=== PATIENT | female | born 1935 | race Caucasian/White ===

== ENCOUNTER 2020-09-21 08:22 | Day surgery (SDC) | payer MEDICARE, OTHER ==
[2020-09-18 16:28] VITALS: BMI 23.1
[~2020-09-21 08:22] MED LIST: LACTATED RINGERS 1,000 ML IV SCH
[2020-09-21 09:15] VITALS: TEMP 98.6
[2020-09-21] MEDS ORDERED: LIDOCAINE 1% (10MG/ML) FOR IV START INTRADERMA ONE (09:20)
[2020-09-21] MEDS ORDERED: PROPOFOL 10 MG/ML 20 ML VIAL IV ONE (09:46)
--- NOTE | 2020-09-21 10:07 | P.PCN ---
Date of Procedure: 09/21/20 Description of Procedure: BRIEF HISTORY: Patient is a 85-year-old female presenting for outpatient esophagogastroduodenoscopy for evaluation of GERD. The patient was seen in the clinic reporting symptoms of a very sour taste in her mouth for 2 months worsen when she ate foods. She reported associated weight loss and intermittent pressure discomfort in the epigastric region. Currently on omeprazole and Pepcid therapy. PROCEDURE PERFORMED: Esophagogastroduodenoscopy with biopsy. PREOPERATIVE DIAGNOSIS: GERD, sour taste in her mouth, epigastric abdominal pain. ESTIMATED BLOOD LOSS: Minimal. IV sedation per anesthesia. PROCEDURE: After informed consent was obtained, the patient was brought into the endoscopy unit. IV sedation was administered by Anesthesia under continuous monitoring. Initially the Olympus GIF-190 video endoscope was inserted into the mouth. Esop hagus intubated without any difficulty. It was gradually advanced into the stomach and duodenum and carefully examined. The bulb and the second part of the duodenum appeared maria isabel, with biopsies taken l. The scope at this time was withdrawn to the stomach, adequately insufflated with air, and upon careful examination, mucosa of the antrum, body, cardia and the fundus appeared normal, except for some mild scattered erythema in the antrum and body suggestive of mild gastritis with biopsies taken. The scope was then withdrawn into the esophagus. The GE junction was located at 39 cm from the incisors, with a small 1 cm hiatal hernia noted. The esophagus appeared normal, with the lower esophagus biopsy. There were no erosions or ulcerations seen and the patient tolerated the procedure well. IMPRESSION: 1. Mild gastritis. 2. Small hiatal hernia. 3. Biopsies of the duodenum, antrum body and lower esophagus. RECOMMENDATIONS: The findings of this examination were discussed with the patient and her family. Okay to resume diet. Okay to resume medications. Continue current acid suppression regimen. May benefit from further evaluation with dentist or other specialties is no gross abnormalities were found on EGD to explain symptoms of foul taste in her mouth. Await pathology from biopsies. Follow up with GI clinic as scheduled.
[2020-09-21 10:35] VITALS: BP 155/65; PULSE 63; RESP 16
== END 2020-09-21 10:42 | disposition home or self-care (01) ==
LOC: ORWHC2ENDO 08:22
PROVIDERS: ATTEND Internal Medicine
DX: K29.50 Unspecified chronic gastritis without bleeding (principal); K21.00 Gastro-esophageal reflux disease with esophagitis, without bleeding; K44.9 Diaphragmatic hernia without obstruction or gangrene; R63.4 Abnormal weight loss; J45.909 Unspecified asthma, uncomplicated; I49.9 Cardiac arrhythmia, unspecified; E07.9 Disorder of thyroid, unspecified; Z86.73 Personal history of transient ischemic attack (TIA), and cerebral infarction without residual deficits; H40.9 Unspecified glaucoma; Z79.1 Long term (current) use of non-steroidal anti-inflammatories (NSAID); Z79.899 Other long term (current) drug therapy; Z88.5 Allergy status to narcotic agent; Z88.0 Allergy status to penicillin; Z88.8 Allergy status to other drugs, medicaments and biological substances
CPT/HCPCS: 88305; 43239; J2704

== ENCOUNTER 2024-03-01 15:28 | Inpatient (IN) | payer MEDICARE, OTHER ==
[2024-03-01 16:24] LABS: Basophils % (A) 0 %; Eosinophils # (A) 0.1 k/uL (0-0.7); Eosinophils % (A) 2 %; HCT 41.1 % (34.0-46.0); HGB 13.2 gm/dL (11.4-16.0); Lymphocytes # (A) 1.7 k/uL (1.0-4.8); Lymphocytes % (A) 30 %; MCH 31.3 pg (25.0-35.0); MCHC 32.2 g/dL (31.0-37.0); MCV 97.1 fL (80.0-100.0); Mean Platelet Volume 7.4; Monocytes # (A) 0.4 k/uL (0-1.0); Monocytes % (A) 8 %; Neutrophils # (A) 3.3 k/uL (1.3-7.7); Neutrophils % (A) 58 %; Platelet Count 162 k/uL (150-450); RBC 4.23 m/uL (3.80-5.40); RDW 12.4 % (11.5-15.5); WBC 5.6 k/uL (3.8-10.6)
[2024-03-01 16:27] LABS: ALT 88 U/L (4-34); AST 61 U/L (14-36); African American GFR (CKD) 66 (>60 ml/min/1.73 sqM); Alkaline Phosphatase 74 U/L (38-126); Anion Gap 4 mmol/L; Blood Urea Nitrogen 19 mg/dL (7-17); Calcium 9.2 mg/dL (8.4-10.2); Carbon Dioxide 27 mmol/L (22-30); Chloride 109 mmol/L (98-107); Glucose 128 mg/dL (74-99); Magnesium 1.8 mg/dL (1.6-2.3); Non-African American GFR(CKD) 57 (>60 ml/min/1.73 sqM); Potassium 4.3 mmol/L (3.5-5.1); Sodium 140 mmol/L (137-145); Total Bilirubin 1.1 mg/dL (0.2-1.3); Total Protein 6.8 g/dL (6.3-8.2)
[2024-03-01 16:29] LABS: INR 1.2 (<1.2); Partial Thromboplastin Time 23.9 sec (22.0-30.0); Prothrombin Time 12.9 sec (10.0-12.5)
[2024-03-01 16:36] LABS: NT-Pro-B-Type Natriuretic Pept 4700 pg/mL
--- NOTE | 2024-03-01 17:00 | XR ---
EXAMINATION TYPE: XR chest 2V DATE OF EXAM: 03/01/2024 4:51 PM COMPARISON: None CLINICAL INDICATION: Female, 88 years old with history of difficulty breathing; [facility] TECHNIQUE: XR chest 2V Frontal and lateral views of the chest. FINDINGS: Lungs/Pleura: No evidence of focal consolidation or pneumothorax. Blunting of the costophrenic angles is present. Pulmonary vascularity: Pulmonary vascular congestion. Heart/mediastinum: Cardiomediastinal silhouette is enlarged and stable. Musculoskeletal: No acute osseous pathology. Other findings: None IMPRESSION: Cardiomegaly, pulmonary vascular congestion and bilateral pleural effusions. Correlate with BNP for c ongestive heart failure. [facility], , 03/01/2024 4:57 PM
--- NOTE | 2024-03-01 19:14 | ED ---
SOB HPI - General Chief Complaint: Shortness of Breath Stated Complaint: fluid on lungs Time Seen by Provider: 03/01/24 18:31 Source: patient Mode of arrival: ambulatory Limitations: no limitations - History of Present Illness Initial Comments: This patient is an 88-year-old woman who presents with complaints that she is having shortness of breath and orthopnea. The symptoms have been going on for approximately 2 weeks. She also is complaining of bilateral ankle edema. The patient notes that she can no longer sleep lying flat. She states if she tries to sleep lying flat she wakes up. As result she has to sleep propped up and she only sleeps about 4 hours per night now. Patient denies chest pain. No change in urination or bowel movements. MD Complaint: shortness of breath Onset/Timin -: week(s) Severity scale (1-10): 0 Consistency: constant Improves With: upright position Worsens With: lying flat, exertion Treatments Prior to Arrival: none - Related Data Home Oxygen Therapy: No Home Medications Medication Instructions Recorded Confirmed Cholecalciferol [Vitamin D3 (25 25 mcg PO HS 09/18/20 03/01/24 Mcg = 1000 Iu)] Dorzolamide/Timolol/Pf 1 drop BOTH EYES BID 09/18/20 03/01/24 [Dorzolamide 2%-Timolol 0.5%] Latanoprost/Pf [Latanoprost 0.005% 1 drop BOTH EYES HS 09/18/20 03/01/24 Eye Drop] methIMAzole [Tapazole] 2.5 mg PO DAILY 09/18/20 03/01/24 Docusate [Colace] 100 mg PO BID PRN 03/01/24 03/01/24 polyethylene glycoL 3350 [Miralax] 17 gm PO DAILY 03/01/24 03/01/24 Previous Rx's Medication Instructions Recorded Apixaban [Eliquis] 2.5 mg PO BID 30 Days #60 tab 03/05/24 Atorvastatin [Lipitor] 40 mg PO HS 30 Days #30 tab 03/05/24 Bumetanide [BUMEX] 1 mg PO DAILY 30 Days #30 tab 03/05/24 Losartan [Cozaar] 12.5 mg PO DAILY 30 Days #15 tab 03/05/24 Metoprolol Succinate (ER) [Toprol 25 mg PO DAILY 30 Days #30 tab 03/05/24 XL] Pantoprazole [Protonix] 40 mg PO AC-BRKFST 30 Days #30 tab 03/05/24 Allergies Allergy/AdvReac Type Severity Reaction Status Date / Time codeine Allergy Rash/Hives Verified 03/01/24 20:09 demeclocycline Allergy Rash/Hives Verified 03/01/24 20:09 [From Declomycin] Penicillins Allergy Rash/Hives Verified 03/01/24 20:09 secobarbital [From Seconal] Allergy Rash/Hives Verified 03/01/24 20:09 morphine AdvReac Nausea & Verified 03/01/24 20:09 Vomiting Review of Systems ROS Statement: Those systems with pertinent positive or pertinent negative responses have been documented in the HPI. ROS Other: All systems not noted in ROS Statement are negative. Constitutional: Denies: fever, chills Respiratory: Reports: dyspnea. Denies: cough, wheezes Cardiovascular: Reports: dyspnea on exertion, orthopnea, edema. Denies: chest pain, palpitations, syncope Gastrointestinal: Reports: abdominal pain, diarrhea. Denies: nausea, vomiting Genitourinary: Denies: dysuria, hematuria Musculoskeletal: Denies: back pain Skin: Denies: rash Neurological: Denies: headache, weakness Past Medical History Past Medical History: Asthma, CVA/TIA, Eye Disorder, GERD/Reflux, Pneumonia, Thyroid Disorder Additional Past Medical History / Comment(s): glaucoma, sinus drainage and allergies. occas. irregular heart beat, weakness, change in taste, "tongue coated" nausea with wt loss 15 pounds, osteoporosis, recent falls has scabs on knees and elbows. goiter History of Any Multi-Drug Resistant Organisms: None Reported Past Surgical History: Cholecystectomy, Hysterectomy Additional Past Surgical History / Comment(s): josé miguel cataract with lens implants,. thyroid surgery x2. rectocele,cystocele repair Past Anesthesia/Blood Transfusion Reactions: Previous Problems w/ Anesthesia Additional Past Anesthesia/Blood Transfusion Reaction / Comment(s): one episode of stopped breathing with thyroid surgery at age 24 Past Psychological History: Anxiety, Depression Smoking Status: Former smoker Past Alcohol Use History: None Reported Past Drug Use History: None Reported General Exam Limitations: no limitations General appearance: alert, in no apparent distress Head exam: Present: atraumatic, normocephalic Eye exam: Present: normal appearance. Absent: scleral icterus, conjunctival injection Neck exam: Present: normal inspection Respiratory exam: Present: rales (There are crackles at the bases bilaterally). Absent: respiratory distress, wheezes, rhonchi, stridor, accessory muscle use Cardiovascular Exam: Present: regular rate, irregular rhythm, normal heart sounds. Absent: systolic murmur, diastolic murmur, rubs, gallop GI/Abdominal exam: Present: soft. Absent: distended, tenderness, guarding, rebound, rigid, mass Extremities exam: Present: normal inspection, normal capillary refill, pedal edema. Absent: calf tenderness Back exam: Present: normal inspection. Absent: CVA tenderness (R), CVA tenderness (L) Neurological exam: Present: alert Skin exam: Present: warm, dry, intact, normal color. Absent: rash Course Vital Signs 03/01/24 03/01/24 03/01/24 15:34 18:46 20:30 Temperature 97.4 F L Pulse Rate 76 79 80 Respiratory 18 16 18 Rate Blood Pressure 178/98 170/83 157/81 O2 Sat by Pulse 98 99 96 Oximetry 03/01/24 03/02/24 03/02/24 22:00 00:00 02:00 Temperature Pulse Rate 93 58 L 68 Respiratory 18 18 18 Rate Blood Pressure 117/87 142/64 141/66 O2 Sat by Pulse 100 97 95 Oximetry 03/02/24 03/02/24 03/02/24 04:00 06:00 07:36 Temperature Pulse Rate 63 61 66 Respiratory 18 18 16 Rate Blood Pressure 160/74 164/79 143/72 O2 Sat by Pulse 96 96 94 L Oximetry 03/02/24 03/02/24 03/02/24 10:29 11:27 14:36 Temperature 98.2 F Pulse Rate 72 76 70 Respiratory 18 18 16 Rate Blood Pressure 145/67 161/98 151/72 O2 Sat by Pulse 98 97 97 Oximetry 03/02/24 03/02/24 03/02/24 16:21 17:00 18:00 Temperature Pulse Rate 70 74 72 Respiratory 18 18 18 Rate Blood Pressure 148/66 163/75 O2 Sat by Pulse 94 L 94 L 93 L Oximetry 03/02/24 20:04 Temperature 98.1 F Pulse Rate 78 Respiratory 18 Rate Blood Pressure 142/77 O2 Sat by Pulse 93 L Oximetry Medical Decision Making - Medical Decision Making The patient had chest x-ray that shows vascular congestion consistent with degree of congestive heart failure. The patient also does have some tracheal deviation due to what appears to be large goiter. Was pt. sent in by a medical professional or institution ([facility], [employer], urgent care, hospital, or fdc...) When possible be specific @ -[No] Did you speak to anyone other than the patient for history (EMS, parent, family, police, friend...)? What history was obtained from this source @ -[No] Did you review nursing and triage notes (agree or disagree)? Why? @ -[I reviewed and agree with nursing and triage notes] Were old charts reviewed (outside hosp., previous admission, EMS record, old EKG, old radiological studies, urgent care reports/EKG's, fdc records)? Report findings @ -[No old charts were reviewed] Differential Diagnosis (chest pain, altered mental status, abdominal pain women, abdominal pain men, vaginal bleeding, weakness, fever, dyspnea, syncope, headac he, dizziness, GI bleed, back pain, seizure, CVA, palpatations, mental health, musculoskeletal)? @ -[not applicable] EKG interpreted by me (3pts min.). @ -[Interpreted as above] X-rays interpreted by me (1pt min.). @ -[I interpreted as above CT interpreted by me (1pt min.). @ -[None done] U/S interpreted by me (1pt. min.). @ -[None done] What testing was considered but not performed or refused? (CT, X-rays, U/S, labs)? Why? @ -[None] What meds were considered but not given or refused? Why? @ -[None] Did you discuss the management of the patient with other professionals (professionals i.e. [facility]to, [employer], lab, RT, psych nurse, high school social studies teacher, shed hand, teacher, benefits officer, disability case manager)? Give summary @ -[Discussed with the admitting physician and treatment recommendations are incorporated Was smoking cessation discussed for >3mins.? @ -[No] Was critical care preformed (if so, how long)? @ -[No] Were there social determinants of health that impacted care today? How? (Homelessness, low income, unemployed, alcoholism, drug addiction, transportation, low edu. Level, literacy, decrease access to med. care, group home, rehab)? @ -[No] Was there de-escalation of care discussed even if they declined (Discuss DNR or withdrawal of care, Hospice)? DNR status @ -[No] What co-morbidities impacted this encounter? (DM, HTN, Smoking, COPD, CAD, Cancer, CVA, ARF, Chemo, Hep., AIDS, mental health diagnosis, sleep apnea, morbid obesity)? @ -[Hypertension, goiter Was patient admitted / discharged? Hospital course, mention meds given and route, prescriptions, significant lab abnormalities, going to OR and other pertinent info. @ -[Patient is an 88-year-old woman presenting with history consistent with progressive congestive heart failure. Physical exam consistent with this. The patient with no previous diagnosis of CHF. She will be admitted to have echocardiogram and further cardiology evaluation as well as diuresis. Undiagnosed new problem with uncertain prognosis? @ -[No] Drug Therapy requiring intensive monitoring for toxicity (Heparin, Nitro, Insulin, Cardizem)? @ -[No] Were any procedures done? @ -[No] Diagnosis/symptom? @ -[Acute congestive heart failure Acute, or Chronic, or Acute on Chronic? @ -[Acute Uncomplicated (without systemic symptoms) or Complicated (systemic symptoms)? @ -[Uncomplicated Side effects of treatment? @ -[No] Exacerbation, Progression, or Severe Exacerbation? @ -[No] Poses a threat to life or bodily function? How? (Chest pain, USA, DC, pneumonia, PE, COPD, DKA, ARF, appy, cholecystitis, CVA, Diverticulitis, Homicidal, Suicidal, threat to staff... and all critical care pts) @ -[Yes, requires cardiology evaluation - Lab Data Result diagrams: 03/03/24 07:45 03/03/24 07:45 Lab Results 03/01/24 03/01/24 03/01/24 Range/Units 15:49 15:49 15:49 WBC 5.6 (3.8-10.6) k/uL RBC 4.23 (3.80-5.40) m/uL Hgb 13.2 (11.4-16.0) gm/dL Hct 41.1 (34.0-46.0) % MCV 97.1 (80.0-100.0) fL MCH 31.3 (25.0-35.0) pg MCHC 32.2 (31.0-37.0) g/dL RDW 12.4 (11.5-15.5) % Plt Count 162 (150-450) k/uL MPV 7.4 Neutrophils % 58 % Lymphocytes % 30 % Monocytes % 8 % Eosinophils % 2 % Basophils % 0 % Neutrophils # 3.3 (1.3-7.7) k/uL Lymphocytes # 1.7 (1.0-4.8) k/uL Monocytes # 0.4 (0-1.0) k/uL Eosinophils # 0.1 (0-0.7) k/uL Basophils # 0.0 (0-0.2) k/uL PT 12.9 H (10.0-12.5) sec INR 1.2 H (<1.2) APTT 23.9 (22.0-30.0) sec Sodium 140 (137-145) mmol/L Potassium 4.3 (3.5-5.1) mmol/L Chloride 109 H (98-107) mmol/L Carbon Dioxide 27 (22-30) mmol/L Anion Gap 4 mmol/L BUN 19 H (7-17) mg/dL Creatinine 0.90 (0.52-1.04) mg/dL Est GFR (CKD-EPI)AfAm 66 (>60 ml/min/1.73 sqM) Est GFR (CKD-EPI)NonAf 57 (>60 ml/min/1.73 sqM) Glucose 128 H (74-99) mg/dL Calcium 9.2 (8.4-10.2) mg/dL Magnesium 1.8 (1.6-2.3) mg/dL Total Bilirubin 1.1 (0.2-1.3) mg/dL AST 61 H (14-36) U/L ALT 88 H (4-34) U/L Alkaline Phosphatase 74 (38-126) U/L Troponin I (0.000-0.034) ng/mL NT-Pro-B Natriuret Pep 4700 pg/mL Total Protein 6.8 (6.3-8.2) g/dL Albumin 4.0 (3.5-5.0) g/dL TSH (0.465-4.680) mIU/L Urine Color Urine Appearance (Clear) Urine pH (5.0-8.0) Ur Specific Egan (1.001-1.035) Urine Protein (Negative) Urine Glucose (UA) (Negative) Urine Ketones (Negative) Urine Blood (Negative) Urine Nitrite (Negative) Urine Bilirubin (Negative) Urine Urobilinogen (<2.0) mg/dL Ur Leukocyte Esterase (Negative) Urine RBC (0-5) /hpf Urine WBC (0-5) /hpf Ur Squamous Epith Cells (0-4) /hpf Urine Bacteria (None) /hpf Urine Mucus (None) /hpf 03/01/24 03/01/24 03/01/24 Range/Units 15:49 19:14 21:51 WBC (3.8-10.6) k/uL RBC (3.80-5.40) m/uL Hgb (11.4-16.0) gm/dL Hct (34.0-46.0) % MCV (80.0-100.0) fL MCH (25.0-35.0) pg MCHC (31.0-37.0) g/dL RDW (11.5-15.5) % Plt Count (150-450) k/uL MPV Neutrophils % % Lymphocytes % % Monocytes % % Eosinophils % % Basophils % % Neutrophils # (1.3-7.7) k/uL Lymphocytes # (1.0-4.8) k/uL Monocytes # (0-1.0) k/uL Eosinophils # (0-0.7) k/uL Basophils # (0-0.2) k/uL PT (10.0-12.5) sec INR (<1.2) APTT (22.0-30.0) sec Sodium (137-145) mmol/L Potassium (3.5-5.1) mmol/L Chloride (98-107) mmol/L Carbon Dioxide (22-30) mmol/L Anion Gap mmol/L BUN (7-17) mg/dL Creatinine (0.52-1.04) mg/dL Est GFR (CKD-EPI)AfAm (>60 ml/min/1.73 sqM) Est GFR (CKD-EPI)NonAf (>60 ml/min/1.73 sqM) Glucose (74-99) mg/dL Calcium (8.4-10.2) mg/dL Magnesium (1.6-2.3) mg/dL Total Bilirubin (0.2-1.3) mg/dL AST (14-36) U/L ALT (4-34) U/L Alkaline Phosphatase (38-126) U/L Troponin I <0.012 (0.000-0.034) ng/mL NT-Pro-B Natriuret Pep pg/mL Total Protein (6.3-8.2) g/dL Albumin (3.5-5.0) g/dL TSH 3.690 (0.465-4.680) mIU/L Urine Color Colorless Urine Appearance Clear (Clear) Urine pH 5.5 (5.0-8.0) Ur Specific Egan 1.007 (1.001-1.035) Urine Protein Negative (Negative) Urine Glucose (UA) Negative (Negative) Urine Ketones Negative (Negative) Urine Blood Small H (Negative) Urine Nitrite Negative (Negative) Urine Bilirubin Negative (Negative) Urine Urobilinogen <2.0 (<2.0) mg/dL Ur Leukocyte Esterase Negative (Negative) Urine RBC 5 (0-5) /hpf Urine WBC 4 (0-5) /hpf Ur Squamous Epith Cells 1 (0-4) /hpf Urine Bacteria Rare H (None) /hpf Urine Mucus Rare H (None) /hpf - EKG Data -: EKG Interpreted by Me EKG shows normal: axis (Normal), intervals (Normal), QRS complexes (Suspected old inferior infarct. Possible anterior infarct), ST-T waves Rate: normal (Rate 73 bpm) Interpretation: other (Rhythm appears to be atrial fibrillation) Disposition Clinical Impression: Congestive heart failure Disposition: ADMITTED IP TO THIS HOSP Condition: Stable Is patient prescribed a controlled substance at d/c from ED?: No
[2024-03-01] MEDS ORDERED: NAPROXEN 250 MG TAB PO PRN (21:00)
[2024-03-01] MEDS ORDERED: DOCUSATE 100 MG CAP PO PRN (21:00)
--- NOTE | 2024-03-01 21:07 | P.HPIM ---
History of Present Illness H&P Date: 03/01/24 Chief Complaint: SOB History of present illness; 88-year-old female with asthma, GERD, hyperthyroidism, A-fib (not on blood thinner) history of CVA presents, hyperlipidemia, and IBS with complaints of shortness of breath and lower extremity swelling. Patient reports her symptoms have been going on for approximately 3 weeks and is also complaining of orthopnea. Patient reports she can no longer sleep laying flat due to shortness of breath. As a result she has been using multiple pillows to prop herself up at night so that she is able to sleep for approximately 4 hours. Denies chest pain, dysuria, admits to abdominal pain which she states is more so chronic and usually secondary to her IBS. EKG done in the ER showed heart rate of 73 bpm, no ST segment elevation or depression seen, no T-wave inversions seen. Atrial fibrillation, QTc 404 ER CXR: Cardiomegaly, pulmonary vascular congestion and bilateral pleural effusions. Patient admitted to internal medicine service REVIEW OF SYSTEMS: As stated above in HPI. The rest of the 14-point review of systems is negative. PHYSICAL EXAMINATION: GENERAL: The patient is alert and oriented x3, not in any acute distress. Well developed, well nourished. HEENT: No scleral icterus. No conjunctival pallor. Bilateral goiter appreciated and palpated CARDIOVASCULAR: S1 and S2 present. No murmurs, rubs, or gallops. PULMONARY: Chest is clear to auscultation b/l, no wheezing or crackles. ABDOMEN: Soft, nontender, nondistended, normoactive bowel sounds. No palpable organomegaly. MUSCULOSKELETAL: No joint swelling or deformity. EXTREMITIES: No cyanosis, clubbing. Trace pedal edema bilaterally. NEUROLOGICAL: Gross neurological examination did not reveal any focal deficits. SKIN: No rashes. Assessment:88-year-old female with asthma, GERD, thyroid disorder, history of CVA presents with complaints of shortness of breath and lower extremity swelling. Admitted to the internal medicine service for further workup of suspected new onset CHF. Plan: #Shortness of breath, lower extremity swelling, orthopnea #Suspected CHF Cardiology on consult, appreciate further recommendations Normally follows with Dr. Love Daily weights Strict intake and output Fluid restrict 2000 mL Lasix 40 IV twice daily Echo ordered Troponin less than 0.012, BNP 4700, creatinine 0.9 Chronic conditions: #Hyperthyroidism Continue home methimazole TSH 3.69 #GERD: Continue Protonix 40 mg p.o. daily #Asthma: Continue to monitor #Atrial fibrillation: Not on blood thinner at home Normally follows with Dr. Love #IBS: Continue home medications #Hyperlipidemia: Previously on statin, recently stopped by PCP due to lipid levels being within normal limits F: None E: None N: Heart healthy diet DVT ppx: Heparin 5000 SQ Q8 HR GI ppx: Protonix 40 mg p.o. daily Dispo: Pending resolution of symptoms and evaluation by cardiology, likely stay greater than 24 to 48 hours Agustin Ahumada MD PGY-1 FM Dictation was produced using [employer] dictation software. please excuse any grammatical, word or spelling errors. Past Medical History Past Medical History: Asthma, CVA/TIA, Eye Disorder, GERD/Reflux, Pneumonia, Thyroid Disorder Additional Past Medical History / Comment(s): glaucoma, sinus drainage and allergies. occas. irregular heart beat, weakness, change in taste, "tongue coated" nausea with wt loss 15 pounds, osteoporosis, recent falls has scabs on knees and elbows. goiter History of Any Multi-Drug Resistant Organisms: None Reported Past Surgical History: Cholecystectomy, Hysterectomy Additional Past Surgical History / Comment(s): josé miguel cataract with lens implants,. thyroid surgery x2. rectocele,cystocele repair Past Anesthesia/Blood Transfusion Reactions: Previous Problems w/ Anesthesia Additional Past Anesthesia/Blood Transfusion Reaction / Comment(s): one episode of stopped breathing with thyroid surgery at age 24 Past Psychological History: Anxiety, Depression Smoking Status: Former smoker Past Alcohol Use History: None Reported Past Drug Use History: None Reported Medications and Allergies Home Medications Medication Instructions Recorded Confirmed Type Cholecalciferol [Vitamin D3 (25 25 mcg PO HS 09/18/20 03/01/24 History Mcg = 1000 Iu)] Dorzolamide/Timolol/Pf 1 drop BOTH EYES BID 09/18/20 03/01/24 History [Dorzolamide 2%-Timolol 0.5%] Latanoprost/Pf [Latanoprost 0.005% 1 drop BOTH EYES HS 09/18/20 03/01/24 History Eye Drop] methIMAzole [Tapazole] 2.5 mg PO DAILY 09/18/20 03/01/24 History Docusate [Colace] 100 mg PO BID PRN 03/01/24 03/01/24 History polyethylene glycoL 3350 [Miralax] 17 gm PO DAILY 03/01/24 03/01/24 History Apixaban [Eliquis] 2.5 mg PO BID 30 Days #60 tab 03/05/24 Rx Atorvastatin [Lipitor] 40 mg PO HS 30 Days #30 tab 03/05/24 Rx Bumetanide [BUMEX] 1 mg PO DAILY 30 Days #30 tab 03/05/24 Rx Losartan [Cozaar] 12.5 mg PO DAILY 30 Days #15 tab 03/05/24 Rx Metoprolol Succinate (ER) [Toprol 25 mg PO DAILY 30 Days #30 tab 03/05/24 Rx XL] Pantoprazole [Protonix] 40 mg PO AC-BRKFST 30 Days #30 tab 03/05/24 Rx Allergies Allergy/AdvReac Type Severity Reaction Status Date / Time codeine Allergy Rash/Hives Verified 03/01/24 20:09 demeclocycline Allergy Rash/Hives Verified 03/01/24 20:09 [From Declomycin] Penicillins Allergy Rash/Hives Verified 03/01/24 20:09 secobarbital [From Seconal] Allergy Rash/Hives Verified 03/01/24 20:09 morphine AdvReac Nausea & Verified 03/01/24 20:09 Vomiting Physical Exam Vitals: Vital Signs Temp Pulse Resp BP Pulse Ox 03/01/24 20:30 80 18 157/81 96 03/01/24 18:46 79 16 170/83 99 03/01/24 15:34 97.4 F L 76 18 178/98 98 Intake and Output 03/01/24 03/01/24 03/01/24 06:59 14:59 22:59 Other: Weight 62.142 kg Results CBC & Chem 7: 03/03/24 07:45 03/03/24 07:45 Labs: Abnormal Lab Results - Last 24 Hours (Table) 03/01/24 03/01/24 Range/Units 15:49 15:49 PT 12.9 H (10.0-12.5) sec INR 1.2 H (<1.2) Chloride 109 H (98-107) mmol/L BUN 19 H (7-17) mg/dL Glucose 128 H (74-99) mg/dL AST 61 H (14-36) U/L ALT 88 H (4-34) U/L Assessment and Plan Assessment: I have seen and evaluated the patient today. I Discussed the case with the resident and agree with the resident's findings I edited the assessment and plan as necessary as documented in the resident's note.
[2024-03-01] MEDS: METOPROLOL TARTRATE 25 MG TAB PO SCH (21:50)
[2024-03-01] MEDS: CHOLECALCIFEROL 25 MCG (1000 IU) TABLET PO SCH (21:50)
[2024-03-01] MEDS: TIMOLOL BOTH EYES SCH (22:06)
[2024-03-01] MEDS: LATANOPROST 0.005% OPHTH DROPS 2.5 ML BTL BOTH EYES SCH (22:06)
[2024-03-01] MEDS: DORZOLAMIDE BOTH EYES SCH (22:06)
[2024-03-01 22:14] LABS: Appearance,Urine Clear (Clear); Bacteria,Urine Rare /hpf; Bilirubin,Urine Negative (Negative); Blood,Urine Small (Negative); Color,Urine Colorless; Glucose,Urine (UA) Negative (Negative); Ketones,Urine Negative (Negative); Leukocyte Esterase,Urine Negative (Negative); Mucus,Urine Rare /hpf; Nitrite,Urine Negative (Negative); PH, Urine 5.5 (5.0-8.0); Protein,Urine Negative (Negative); RBC,Urine 5 /hpf (0-5); Specific Gravity,Urine 1.007 (1.001-1.035); Squamous Epithelial Cell,Urine 1 /hpf (0-4); Urobilinogen,Urine <2.0 mg/dL (<2.0); WBC,Urine 4 /hpf (0-5)
[2024-03-01] MEDS: FUROSEMIDE 10 MG/ML 4 ML VIAL IV SCH (22:36)
[2024-03-01] MEDS: diphenhydrAMINE 25 MG CAP PO STA (23:03)
[2024-03-02] MEDS: HEPARIN SODIUM,PORCINE 5,000 UNIT/ML 1 ML VIAL SQ SCH (05:59)
[2024-03-02] MEDS: polyethylene glycoL 3350 17 GM POWD.PACK PO SCH (08:21)
[2024-03-02] MEDS: PANTOPRAZOLE 40 MG TABLET PO SCH (08:21)
[2024-03-02] MEDS: methIMAzole 5 MG TAB PO SCH (08:47)
[2024-03-02 10:02] LABS: HCT 40.4 % (34.0-46.0); HGB 13.1 gm/dL (11.4-16.0); MCH 31.9 pg (25.0-35.0); MCHC 32.5 g/dL (31.0-37.0); MCV 98.1 fL (80.0-100.0); Mean Platelet Volume 7.9; Platelet Count 170 k/uL (150-450); RBC 4.11 m/uL (3.80-5.40); RDW 12.9 % (11.5-15.5); WBC 6.5 k/uL (3.8-10.6)
[2024-03-02 10:07] LABS: ALT 86 U/L (4-34); AST 69 U/L (14-36); African American GFR (CKD) 62 (>60 ml/min/1.73 sqM); Alkaline Phosphatase 77 U/L (38-126); Anion Gap 6 mmol/L; Blood Urea Nitrogen 17 mg/dL (7-17); Calcium 9.3 mg/dL (8.4-10.2); Carbon Dioxide 30 mmol/L (22-30); Chloride 106 mmol/L (98-107); Glucose 150 mg/dL (74-99); Magnesium 1.7 mg/dL (1.6-2.3); Non-African American GFR(CKD) 54 (>60 ml/min/1.73 sqM); Sodium 142 mmol/L (137-145); Total Bilirubin 1.2 mg/dL (0.2-1.3); Total Protein 6.9 g/dL (6.3-8.2)
--- NOTE | 2024-03-02 11:09 | P.CRDCN ---
History of Present Illness Consult date: 03/02/24 History of present illness: HISTORY OF PRESENTING ILLNESS Patient is a 88-year-old female who is known to Dr. Love in the past. She has a past medical history of Graves' disease with thyromegaly, hyperthyroidism, dyslipidemia. She presented to the hospital because of concerns of increased worsening shortness of breath over last 2 to 3 weeks along with symptoms of orthopnea and paroxysmal nocturnal dyspnea. She also endorsed symptoms of increased swelling in the bilateral extremity. She denies any chest pain, chest pressure. She denies any lightheadedness or dizziness. She denies palpitations. She denies any fall or syncopal episodes at the home. Admission ECG shows atrial fibrillation with slow heart rate response with heart rate around 60 bpm. No pauses noticed on telemetry so far. REVIEW OF SYSTEMS 14 point review of system is negative except what is mentioned above in HPI. PHYSICAL EXAMINATION Vital signs reviewed. Head: Normocephalic. Eyes: Sclerae nonicteric. Neck: Brisk carotid upstroke, no jugular venous distention. Swelling in the n rosaline noticed from thyromegaly. Lungs: Mild crackles audible in bilateral lungs Heart: Irregularly irregular pulse, S1-S2, no S3, no murmur or rub. Abdomen: Soft nontender, positive bowel sounds. Extremities: No edema, intact distal pulses. Neuro: Alert, oritented, no focal deficits. Detailed neuro exam was not performed. ASSESSMENT Mild HFpEF exacerbation Atrial fibrillation with slow ventricle response History of TIA Graves' disease with thyromegaly and hypothyroidism Pertinent testing TSH 3.6, normal. NT-proBNP 4700, troponin negative, creatinine 0.9 PLAN Continue IV Lasix 40 mg twice daily. Monitor renal function and urine output and electrolytes Eliquis 2.5 mg twice daily Obtain updated echocardiogram Will do low-dose beta-tash metoprolol succinate 25 mg daily due to slow vent ricular response. Monitor tele Gregorio Batista MD, FACC, RPVI Thank you for allowing [facility] to participate in this patient's care. Feel free to reach out in case of any followup questions. Past Medical History Past Medical History: Asthma, CVA/TIA, Eye Disorder, GERD/Reflux, Pneumonia, Thyroid Disorder Additional Past Medical History / Comment(s): glaucoma, sinus drainage and allergies. occas. irregular heart beat, weakness, change in taste, "tongue coated" nausea with wt loss 15 pounds, osteoporosis, recent falls has scabs on knees and elbows. goiter History of Any Multi-Drug Resistant Organisms: None Reported Past Surgical History: Cholecystectomy, Hysterectomy Additional Past Surgical History / Comment(s): josé miguel cataract with lens implants,. thyroid surgery x2. rectocele,cystocele repair Past Anesthesia/Blood Transfusion Reactions: Previous Problems w/ Anesthesia Additional Past Anesthesia/Blood Transfusion Reaction / Comment(s): one episode of stopped breathing with thyroid surgery at age 24 Past Psychological History: Anxiety, Depression Smoking Status: Former smoker Past Alcohol Use History: None Reported Past Drug Use History: None Reported Medications and Allergies Home Medications Medication Instructions Recorded Confirmed Type Cholecalciferol [Vitamin D3 (25 25 mcg PO HS 09/18/20 03/01/24 History Mcg = 1000 Iu)] Dorzolamide/Timolol/Pf 1 drop BOTH EYES BID 09/18/20 03/01/24 History [Dorzolamide 2%-Timolol 0.5%] Latanoprost/Pf [Latanoprost 0.005% 1 drop BOTH EYES HS 09/18/20 03/01/24 History Eye Drop] Metoprolol Tartrate [Lopressor] 25 mg PO BID 09/18/20 03/01/24 History methIMAzole [Tapazole] 2.5 mg PO DAILY 09/18/20 03/01/24 History Docusate [Colace] 100 mg PO BID PRN 03/01/24 03/01/24 History Naproxen Sodium [Aleve] 220 mg PO BID PRN 03/01/24 03/01/24 History polyethylene glycoL 3350 [Miralax] 17 gm PO DAILY 03/01/24 03/01/24 History Allergies Allergy/AdvReac Type Severity Reaction Status Date / Time codeine Allergy Rash/Hives Verified 03/01/24 20:09 demeclocycline Allergy Rash/Hives Verified 03/01/24 20:09 [From Declomycin] Penicillins Allergy Rash/Hives Verified 03/01/24 20:09 secobarbital [From Seconal] Allergy Rash/Hives Verified 03/01/24 20:09 morphine AdvReac Nausea & Verified 03/01/24 20:09 Vomiting Physical Exam Vitals: Vital Signs Temp Pulse Resp BP Pulse Ox 03/02/24 10:29 98.2 F 72 18 145/67 98 03/02/24 07:36 66 16 143/72 94 L 03/02/24 06:00 61 18 164/79 96 03/02/24 04:00 63 18 160/74 96 03/02/24 02:00 68 18 141/66 95 03/02/24 00:00 58 L 18 142/64 97 03/01/24 22:00 93 18 117/87 100 03/01/24 20:30 80 18 157/81 96 03/01/24 18:46 79 16 170/83 99 03/01/24 15:34 97.4 F L 76 18 178/98 98 Intake and Output 03/01/24 03/02/24 03/02/24 22:59 06:59 14:59 Output Total 220 Balance -220 Output: Urine 220 Other: Weight 62.142 kg Results 03/02/24 09:27 03/02/24 09:27 Cardiac Enzymes 03/01/24 03/01/24 03/02/24 Range/Units 15:49 15:49 09:27 AST 61 H 69 H (14-36) U/L Troponin I <0.012 (0.000-0.034) ng/mL Coagulation 03/01/24 Range/Units 15:49 PT 12.9 H (10.0-12.5) sec APTT 23.9 (22.0-30.0) sec CBC 03/01/24 03/02/24 Range/Units 15:49 09:27 WBC 5.6 6.5 (3.8-10.6) k/uL RBC 4.23 4.11 (3.80-5.40) m/uL Hgb 13.2 13.1 (11.4-16.0) gm/dL Hct 41.1 40.4 (34.0-46.0) % Plt Count 162 170 (150-450) k/uL Comprehensive Metabolic Panel 03/01/24 03/02/24 Range/Units 15:49 09:27 Sodium 140 142 (137-145) mmol/L Potassium 4.3 4.0 (3.5-5.1) mmol/L Chloride 109 H 106 (98-107) mmol/L Carbon Dioxide 27 30 (22-30) mmol/L BUN 19 H 17 (7-17) mg/dL Creatinine 0.90 0.95 (0.52-1.04) mg/dL Glucose 128 H 150 H (74-99) mg/dL Calcium 9.2 9.3 (8.4-10.2) mg/dL AST 61 H 69 H (14-36) U/L ALT 88 H 86 H (4-34) U/L Alkaline Phosphatase 74 77 (38-126) U/L Total Protein 6.8 6.9 (6.3-8.2) g/dL Albumin 4.0 4.0 (3.5-5.0) g/dL Current Medications Generic Name Dose Route Start Last Admin Trade Name Freq PRN Reason Stop Dose Admin Apixaban 2.5 mg 03/02/24 11:15 Apixaban 5 Mg Tab PO BID ON LICENSE OF [facility] Protocol Cholecalciferol 25 mcg 03/01/24 21:00 03/01/24 21:50 Cholecalciferol 25 Mcg (1000 Iu) Tablet PO 25 mcg HS GERARDO Administration Docusate Sodium 100 mg 03/01/24 21:00 Docusate 100 Mg Cap PO BID PRN Constipation Furosemide 40 mg 03/01/24 21:49 03/02/24 08:21 Furosemide 10 Mg/Ml 4 Ml Vial IV 40 mg BID GERARDO Administration Heparin Sodium (Porcine) 5,000 unit 03/02/24 06:00 03/02/24 08:19 Heparin Sodium,Porcine 5,000 Unit/Ml 1 Ml Vial SQ Not Given Q8HR GERARDO Latanoprost 1 drops 03/01/24 21:00 03/01/24 22:06 Latanoprost 0.005% Ophth Drops 2.5 Ml Btl BOTH EYES 1 drops HS GERARDO Administration Methimazole 2.5 mg 03/02/24 09:00 03/02/24 08:47 Methimazole 5 Mg Tab PO 2.5 mg DAILY GERARDO Administration Naproxen 250 mg 03/01/24 21:00 Naproxen 250 Mg Tab PO BID PRN Pain or Fever > 100.5 Non-Formulary Medication 1 drop 03/01/24 21:00 03/02/24 08:52 Dorzolamide/Timolol/Pf [Dorzolamide 2%-Timolol 0.5%] BOTH EYES Not Given BID ON LICENSE OF [facility] Pantoprazole Sodium 40 mg 03/02/24 07:30 03/02/24 08:21 Pantoprazole 40 Mg Tablet PO 40 mg AC-BRKFST GERARDO Administration Polyethylene Glycol 17 gm 03/02/24 09:00 03/02/24 08:21 Polyethylene Glycol 3350 17 Gm Powd.Pack PO 17 gm DAILY GERARDO Administration Intake and Output 03/01/24 03/02/24 03/02/24 22:59 06:59 14:59 Output Total 220 Balance -220 Output: Urine 220 Other: Weight 62.142 kg 03/02/24 09:27 03/02/24 09:27
[2024-03-02] MEDS: APIXABAN 2.5 MG TABLET PO SCH (11:28)
[2024-03-02] MEDS ORDERED: ACETAMINOPHEN TAB 325 MG TAB PO PRN (12:25)
[2024-03-02] MEDS ORDERED: MELATONIN 3 MG TABLET PO PRN (12:26)
--- NOTE | 2024-03-02 12:51 | P.PN ---
Subjective Progress Note Date: 03/02/24 Hospital course: Patient is a pleasant 88-year-old female with a past medical history of asthma, GERD, hyperthyroidism with Graves' disease, chronic A-fib (not on blood thinner), chronic diastolic congestive heart failure, history of CVA presents, hyperlipidemia, and IBS. Pt presented to the hospital on 03/01/24 with a chief complaint of shortness of breath and lower extremity edema. Patient reported the symptoms began approximately 3 weeks ago and progressively worsened accompanied by orthopnea. Arrival to our facility, patient underwent evaluation in the emergency department. Vital signs upon arrival show blood pressure 178/98, heart rate 76, respiratory rate 18, temp 97.4 F, and SpO2 of 98% on room air. EKG completed showing atrial fibrillation with controlled ventricular rate of 73 bpm. X-ray consistent with CHF showing cardiomegaly with pulmonary vascular congestion and bilateral pleural effusions. Labs completed and reviewed. CBC unremarkable. Coagulation profile showing elevated PT of 12.9 and INR of 1.2. BMP showing hyperchloremia with chloride of 109 and prerenal azotemia with BUN of 19. Blood glucose 128. Magnesium 1.8. Liver profile showing elevated AST of 61 and ALT of 88 otherwise normal findings. Troponin was negative at less than 0.012. proBNP was 4700. TSH was 3.690. Urinalysis negative for infection. Physical exam: Patient seen and fully evaluated at bedside. She appeared to be resting comfortably in bed. She reports her breathing has improved since arriving to our facility, but still not at baseline. Patient reports she is unable to lay flat and has difficulty sleeping secondary to significant orthopnea. Patient denies any chest pain or other complaints at this time. Vital signs reviewed and stable. General: Nontoxic, no distress and appears stated age. Derm: Skin warm and dry, normal coloration for ethnicity. Head: Atraumatic, normocephalic and symmetric. Large-sized mass of anterior neck/thyroid extending to the left lateral neck (patient reports this is known mass from Graves' disease and stated she was not a surgical candidate) Eyes: EOM's intact, no lid lag, and anicteric sclera Mouth: no lip lesions, mucus membranes moist Cardiovascular: regular rate and rhythm with normal S1S2, no murmur, positive posterior tibial pulses bilaterally, and cap refill < 2 seconds. Lungs: Respirations even, regular, and unlabored on room air. Lungs with bibasilar crackles. No accessory muscle usage. Abdominal: soft, nontender to palpation, no guarding, no appreciable organomegaly Ext: ROM intact. No gross muscle atrophy, no edema, no contractures Neuro: Speech clear, face symmetrical and CN II-XII grossly intact with no noted focal neuro deficits Psych: Alert and oriented to person, place, time, and situation. Appropriate and pleasant affect. Assessment and Plan of Care: Diastolic heart failure exacerbation Persistent atrial fibrillation with a controlled/slowed ventricular response History of CVA Transaminitis -Cardiology consulted and discussed plan of care, patient being started patient on Eliquis 2.5 mg twice daily -Telemetry monitoring -ProBNP 4700. Troponin was negative at less than 0.012. -Daily weights amd Close monitoring of I's and O's -Cardiac diet with 2 L fluid restriction -Lasix 40 mg IVP twice daily -Continue Eliquis 2.5 mg twice daily, atorvastatin 40 mg nightly and metoprolol 25 mg daily. -Continued close monitoring of electrolytes while diuresing. -Echocardiogram to be completed Hypomagnesemia -Magnesium 1.7. Orders placed for magnesium sulfate 2 g IVPB. Will continue to monitor electrolytes closely and place additional orders if indicated based upon findings. Hyperthyroidism with Graves' disease Large thyroid mass -Continue methimazole 2.5 mg daily. -TSH was normal findings at 3.690. -Patient to continue to follow-up outpatient with endocrinology for long-term monitoring/management. GERD -Continue Protonix 40 mg daily. Data and imaging reviewed: -Morning labs reviewed. CBC unremarkable. BMP showing hyperglycemia with glucose of 150 and hypomagnesemia with magnesium of 1.7. Liver profile showing elevated AST of 69 and ALT of 86. -Vital signs reviewed. Blood pressure 145/67, heart rate 72, respiratory rate 18, temp 98.2 F, and SpO2 of 98% on room air. CODE STATUS: Full code DVT prophylaxis: Eliquis Discussed with: Patient, RN, and lead front desk agent Anticipated discharge date: Pending clinical course, likely 24 to [address]: Home Patient was seen independently by Nurse Pracitioner. This document was prepared using [employer] dictation software. Please allow for errors in tour director, while rare they do occur. Dk Mc NP rendered care for this patient independently, reviewed the findings and plan as documented in the note above. I did not physically speak with or examine the patient on this date. Objective - Vital Signs Vital signs: Vital Signs Temp 97.4 F L 03/01/24 15:34 Pulse 66 03/02/24 07:36 Resp 16 03/02/24 07:36 BP 143/72 03/02/24 07:36 Pulse Ox 94 L 03/02/24 07:36 FiO2 Intake & Output 03/01/24 03/02/24 03/02/24 18:59 06:59 18:59 Output Total 220 Balance -220 Weight 62.142 kg Output: Urine 220 - Labs CBC & Chem 7: 03/02/24 09:27 03/02/24 09:27 Labs: Abnormal Lab Results - Last 24 Hours (Table) 03/01/24 03/01/24 03/01/24 Range/Units 15:49 15:49 21:51 PT 12.9 H (10.0-12.5) sec INR 1.2 H (<1.2) Chloride 109 H (98-107) mmol/L BUN 19 H (7-17) mg/dL Glucose 128 H (74-99) mg/dL AST 61 H (14-36) U/L ALT 88 H (4-34) U/L Urine Blood Small H (Negative) Urine Bacteria Rare H (None) /hpf Urine Mucus Rare H (None) /hpf
[2024-03-02] MEDS: MAGNESIUM SULFATE-D5W PMX 1 GM in DEXTROSE/WATER 1 100ML.BAG IVPB SCH (12:53)
[2024-03-02] MEDS: ATORVASTATIN 40 MG TAB PO SCH (21:26)
[2024-03-03 07:58] LABS: HCT 39.8 % (34.0-46.0); HGB 12.7 gm/dL (11.4-16.0); MCH 30.8 pg (25.0-35.0); MCHC 31.9 g/dL (31.0-37.0); MCV 96.7 fL (80.0-100.0); Mean Platelet Volume 7.3; Platelet Count 151 k/uL (150-450); RBC 4.12 m/uL (3.80-5.40); RDW 12.4 % (11.5-15.5); WBC 6.3 k/uL (3.8-10.6)
[2024-03-03 08:12] LABS: ALT 69 U/L (4-34); AST 44 U/L (14-36); African American GFR (CKD) 59 (>60 ml/min/1.73 sqM); Albumin 3.6 g/dL (3.5-5.0); Alkaline Phosphatase 66 U/L (38-126); Anion Gap 5 mmol/L; Blood Urea Nitrogen 17 mg/dL (7-17); Calcium 8.9 mg/dL (8.4-10.2); Carbon Dioxide 32 mmol/L (22-30); Chloride 103 mmol/L (98-107); Glucose 138 mg/dL (74-99); Non-African American GFR(CKD) 51 (>60 ml/min/1.73 sqM); Potassium 3.5 mmol/L (3.5-5.1); Sodium 140 mmol/L (137-145); Total Bilirubin 1.1 mg/dL (0.2-1.3); Total Protein 6.2 g/dL (6.3-8.2)
[2024-03-03] MEDS: METOPROLOL SUCCINATE (ER) 25 MG TAB.ER.24H PO SCH (09:13)
--- NOTE | 2024-03-03 11:50 | P.PN ---
Subjective Progress Note Date: 03/03/24 Hospital course: Patient is a pleasant 88-year-old female with a past medical history of asthma, GERD, hyperthyroidism with Graves' disease, chronic A-fib (not on blood thinner), chronic diastolic congestive heart failure, history of CVA presents, hyperlipidemia, and IBS. Pt presented to the hospital on 03/01/24 with a chief complaint of shortness of breath and lower extremity edema. Patient reported the symptoms began approximately 3 weeks ago and progressively worsened accompanied by orthopnea. Arrival to our facility, patient underwent evaluation in the emergency department. Vital signs upon arrival show blood pressure 178/98, heart rate 76, respiratory rate 18, temp 97.4 F, and SpO2 of 98% on room air. EKG completed showing atrial fibrillation with controlled ventricular rate of 73 bpm. X-ray consistent with CHF showing cardiomegaly with pulmonary vascular congestion and bilateral pleural effusions. Labs completed and reviewed. CBC unremarkable. Coagulation profile showing elevated PT of 12.9 and INR of 1.2. BMP showing hyperchloremia with chloride of 109 and prerenal azotemia with BUN of 19. Blood glucose 128. Magnesium 1.8. Liver profile showing elevated AST of 61 and ALT of 88 otherwise normal findings. Troponin was negative at less than 0.012. proBNP was 4700. TSH was 3.690. Urinalysis negative for infection. Physical exam: Patient seen and fully evaluated at bedside. She was sitting up in chair and reports her breathing continues to improve and nearly back to baseline. She denies having any additional complaints at this time. She reports that she has lost 7 pounds in the last 24 hours and that she cannot believe how much her legs have improved and back to normal. Vital signs reviewed and stable. General: Nontoxic, no distress and appears stated age. Derm: Skin warm and dry, normal coloration for ethnicity. Head: Atraumatic, normocephalic and symmetric. Large-sized mass of anterior neck/thyroid extending to the left lateral neck (patient reports this is known mass from Graves' disease and stated she was not a surgical candidate) Eyes: EOM's intact, no lid lag, and anicteric sclera Mouth: no lip lesions, mucus membranes moist Cardiovascular: regular rate and rhythm with normal S1S2, no murmur, positive posterior tibial pulses bilaterally, and cap refill < 2 seconds. Lungs: Respirations even, regular, and unlabored on room air. Lungs with biba silar crackles. No accessory muscle usage. Abdominal: soft, nontender to palpation, no guarding, no appreciable organomegaly Ext: ROM intact. No gross muscle atrophy, no edema, no contractures Neuro: Speech clear, face symmetrical and CN II-XII grossly intact with no noted focal neuro deficits Psych: Alert and oriented to person, place, time, and situation. Appropriate and pleasant affect. Assessment and Plan of Care: Diastolic heart failure exacerbation Persistent atrial fibrillation with a controlled/slowed ventricular response History of CVA Mild Transaminitis, stable -Cardiology consulted and discussed plan of care with cardiac SOCIAL MEDIA INTERN, patient being started Bumex 1 mg daily and to have echocardiogram completed and if normal, pt may is cleared from their standpoint and recommend outpatient follow up in their office. -Telemetry monitoring -ProBNP 4700. Troponin was negative at less than 0.012. -Daily weights amd Close monitoring of I's and O's -Cardiac diet with 2 L fluid restriction -After successful IV diuresis, patient transition to oral diuretic with Bumex 1 mg daily. -Continue Eliquis 2.5 mg twice daily, atorvastatin 40 mg nightly and metoprolol 25 mg daily. -Continued close monitoring of electrolytes while diuresing. -Awaiting echocardiogram to be completed Hypomagnesemia -Replaced and resolved with repeat morning potassium of 2.0. Hyperthyroidism with Graves' disease Large thyroid mass -Continue methimazole 2.5 mg daily. -TSH was normal findings at 3.690. -Patient to continue to follow-up outpatient with endocrinology for long-term monitoring/management. GERD -Continue Protonix 40 mg daily. Data and imaging reviewed: -Morning labs reviewed. CBC unremarkable. BMP showing mild hypercarbia with bicarb of 32 and blood glucose of 138. Liver profile showing elevated but improved liver function with AST of 44, ALT of 69, and alkaline phosphatase of 6 6. -Vital signs reviewed. Blood pressure 143/63, heart rate 83, respiratory rate 16, temp 97.7 F, and SpO2 of 96% on room air. CODE STATUS: Full code DVT prophylaxis: Eliquis Discussed with: Patient, RN, and cardiology SOCIAL MEDIA INTERN Anticipated discharge date: Pending completion of echocardiogram and results, likely within the next [address]: Home Patient was seen independently by Nurse Pracitioner. This document was prepared using [employer] dictation software. Please allow for errors in endoscopy technician, while rare they do occur. Dk Mc NP rendered care for this patient independently, reviewed the findings and plan as documented in the note above and agree with plan. I did not physically speak with or examine the patient on this date. Objective - Vital Signs Vital signs: Vital Signs Temp 98.0 F 03/03/24 04:00 Pulse 72 03/03/24 04:00 Resp 19 03/03/24 04:00 BP 153/84 03/03/24 04:00 Pulse Ox 94 L 03/03/24 04:00 FiO2 Intake & Output 03/02/24 03/03/24 03/03/24 18:59 06:59 18:59 Intake Total 480 Output Total 450 Balance 30 Weight 59.3 kg Intake: Oral 480 Output: Urine 450 Other: Voiding Method Toilet Diaper - Labs CBC & Chem 7: 03/03/24 07:45 03/03/24 07:45 Labs: Abnormal Lab Results - Last 24 Hours (Table) 03/02/24 03/03/24 Range/Units 09:27 07:45 Carbon Dioxide 32 H (22-30) mmol/L Glucose 150 H 138 H (74-99) mg/dL AST 69 H 44 H (14-36) U/L ALT 86 H 69 H (4-34) U/L Total Protein 6.2 L (6.3-8.2) g/dL
[2024-03-03] MEDS: BUMETANIDE 1 MG TAB PO SCH (11:59)
[2024-03-03] MEDS: LOSARTAN 25 MG TAB PO SCH (11:59)
--- NOTE | 2024-03-03 12:55 | P.PN ---
Subjective Progress Note Date: 03/03/24 HISTORY OF PRESENTING ILLNESS Patient is a 88-year-old female who is known to Dr. Love in the past. She has a past medical history of Graves' disease with thyromegaly, hyperthyroidism, dyslipidemia. She presented to the hospital because of concerns of increased worsening shortness of breath over last 2 to 3 weeks along with symptoms of orthopnea and paroxysmal nocturnal dyspnea. She also endorsed symptoms of increased swelling in the bilateral extremity. She denies any chest pain, chest pressure. She denies any lightheadedness or dizziness. She denies palpitations. She denies any fall or syncopal episodes at the home. Admission ECG shows atrial fibrillation with slow heart rate response with heart rate around 60 bpm. No pauses noticed on telemetry so far. 03/03 Patient is seen and examined. Echocardiogram has been done and report is pending. Patient states that she lost 7 pounds and is urinating quite a bit. She denies any lower extremity edema. Weight is down almost 3 kg. XAVI's do not appear to be accurate. Repeat blood work reveals hemoglobin 12.7. Sodium 140, potassium 3.5, BUN 17 and creatinine 0.98. PHYSICAL EXAMINATION Vital signs reviewed. Head: Normocephalic. Eyes: Sclerae nonicteric. Neck: Brisk carotid upstroke, no jugular venous distention. Swelling in the neck noticed from thyromegaly. Lungs: Mild crackles audible in bilateral lungs Heart: Irregularly irregular pulse, S1-S2, no S3, no murmur or rub. Abdomen: Soft nontender, positive bowel sounds. Extremities: No edema, intact distal pulses. Neuro: Alert, oritented, no focal deficits. Detailed neuro exam was not performed. ASSESSMENT Mild HFpEF exacerbation Atrial fibrillation with slow ventricle response History of TIA Graves' disease with thyromegaly and hypothyroidism Pertinent testing TSH 3.6, normal. NT-proBNP 4700, troponin negative, creatinine 0.9 PLAN Transition IV Lasix to Bumex 1 mg daily Monitor renal function and urine output and electrolytes Continue Eliquis 2.5 mg twice daily and add Toprol XL 25 mg daily Add losartan 12.5 mg daily Obtain updated echocardiogram Continue telemetry monitoring Nurse practitioner note has been reviewed, I agree with documented findings and plan of care. Patient was seen and examined. Objective - Vital Signs Vital signs: Vital Signs Temp 97.7 F 03/03/24 08:00 Pulse 83 03/03/24 08:00 Resp 16 03/03/24 08:00 BP 143/63 03/03/24 08:00 Pulse Ox 96 03/03/24 08:00 FiO2 Intake & Output 03/02/24 03/03/24 03/03/24 18:59 06:59 18:59 Intake Total 480 240 Output Total 450 Balance 30 240 Weight 59.3 kg Intake: Oral 480 240 Output: Urine 450 Other: Voiding Method Toilet Diaper - Labs CBC & Chem 7: 03/03/24 07:45 03/03/24 07:45 Labs: Abnormal Lab Results - Last 24 Hours (Table) 03/03/24 Range/Units 07:45 Carbon Dioxide 32 H (22-30) mmol/L Glucose 138 H (74-99) mg/dL AST 44 H (14-36) U/L ALT 69 H (4-34) U/L Total Protein 6.2 L (6.3-8.2) g/dL
[2024-03-03 13:32] VITALS: BMI 21.1
--- NOTE | 2024-03-04 13:02 | P.PN ---
Subjective Progress Note Date: 03/04/24 Hospital course: Patient is a pleasant 88-year-old female with a past medical history of asthma, GERD, hyperthyroidism with Graves' disease, chronic A-fib (not on blood thinner), chronic diastolic congestive heart failure, history of CVA presents, hyperlipidemia, and IBS. Pt presented to the hospital on 03/01/24 with a chief complaint of shortness of breath and lower extremity edema. Patient reported the symptoms began approximately 3 weeks ago and progressively worsened accompanied by orthopnea. Arrival to our facility, patient underwent evaluation in the emergency department. Vital signs upon arrival show blood pressure 178/98, heart rate 76, respiratory rate 18, temp 97.4 F, and SpO2 of 98% on room air. EKG completed showing atrial fibrillation with controlled ventricular rate of 73 bpm. X-ray consistent with CHF showing cardiomegaly with pulmonary vascular congestion and bilateral pleural effusions. Labs completed and reviewed. CBC unremarkable. Coagulation profile showing elevated PT of 12.9 and INR of 1.2. BMP showing hyperchloremia with chloride of 109 and prerenal azotemia with BUN of 19. Blood glucose 128. Magnesium 1.8. Liver profile showing elevated AST of 61 and ALT of 88 otherwise normal findings. Troponin was negative at less than 0.012. proBNP was 4700. TSH was 3.690. Urinalysis negative for infection. Physical exam: Patient seen and fully evaluated at bedside. She was sitting up in chair and reports feeling well this morning. Vital signs reviewed and stable. General: Nontoxic, no distress and appears stated age. Derm: Skin warm and dry, normal coloration for ethnicity. Head: Atraumatic, normocephalic and symmetric. Large-sized mass of anterior neck/thyroid extending to the left lateral neck (patient reports this is known mass from Graves' disease and stated she was not a surgical candidate) Eyes: EOM's intact, no lid lag, and anicteric sclera Mouth: no lip lesions, mucus membranes moist Cardiovascular: regular rate and rhythm with normal S1S2, no murmur, positive posterior tibial pulses bilaterally, and cap refill < 2 seconds. Lungs: Respirations even, regular, and unlabored on room air. Lungs with bibasilar crackles. No accessory muscle usage. Abdominal: soft, nontender to palpation, no guarding, no appreciable organomegaly Ext: ROM intact. No gross muscle atrophy, no edema, no contractures Neuro: Speech clear, face symmetrical and CN II-XII grossly intact with no noted focal neuro deficits Psych: Alert and oriented to person, place, time, and situation. Appropriate and pleasant affect. Assessment and Plan of Care: Diastolic heart failure exacerbation Persistent atrial fibrillation with a controlled/slowed ventricular response History of CVA Mild Transaminitis, stable -Cardiology consulted and discussed plan of care with college advisor and cardiac BLINTZE ROLLER, continue to await for echocardiogram to be completed. Possible cardiac clearance pending echocardiogram results. -Telemetry monitoring -ProBNP 4700. Troponin was negative at less than 0.012. -Daily weights amd Close monitoring of I's and O's -Cardiac diet with 2 L fluid restriction -After successful IV diuresis, patient transition to oral diuretic with Bumex 1 mg daily. -Continue Eliquis 2.5 mg twice daily, atorvastatin 40 mg nightly and metoprolol 25 mg daily. -Continued close monitoring of electrolytes while diuresing. -Awaiting echocardiogram to be completed Hypomagnesemia, resolved. Hyperthyroidism with Graves' disease Large thyroid mass -Continue methimazole 2.5 mg daily. -TSH was normal findings at 3.690. -Patient to continue to follow-up outpatient with endocrinology for long-term monitoring/management. GERD -Continue Protonix 40 mg daily. Data and imaging reviewed: -Labs reviewed. CBC unremarkable. BMP showing mild hypercarbia with bicarb of 32 and blood glucose of 138. Liver profile showing elevated but improved liver function with AST of 44, ALT of 69, and alkaline phosphatase of 66. -Vital signs reviewed. Blood pressure 124/61, heart rate 62, respiratory rate 16, temp 98.6 F, and SpO2 of 93% on room air. CODE STATUS: Full code DVT prophylaxis: Eliquis Discussed with: Patient, RN, and cardiology BLINTZE ROLLER Anticipated discharge date: Pending completion of echocardiogram and results, likely within the next [address]: Home Patient was seen independently by Nurse Pracitioner. This document was prepared using [employer] dictation software. Please allow for errors in ore roaster, while rare they do occur. Dk Mc NP rendered care for this patient independently, reviewed the findings and plan as documented in the note above and agree with plan. I did n ot physically speak with or examine the patient on this date. Objective - Vital Signs Vital signs: Vital Signs Temp 98.1 F 11/07/24 03:36 Pulse 66 03/04/24 03:36 Resp 17 03/04/24 03:36 BP 131/80 03/04/24 03:36 Pulse Ox 96 03/04/24 03:36 FiO2 Intake & Output 03/03/24 03/04/24 03/04/24 18:59 06:59 18:59 Intake Total 358 118 Balance 358 118 Weight 59.3 kg 58.4 kg Intake: Oral 358 118 Other: Voiding Method Toilet Toilet Diaper Diaper - Labs CBC & Chem 7: 03/03/24 07:45 03/03/24 07:45
--- NOTE | 2024-03-04 13:54 | P.PN ---
Subjective Progress Note Date: 03/04/24 HISTORY OF PRESENTING ILLNESS Patient is a 88-year-old female who is known to Dr. Love in the past. She has a past medical history of Graves' disease with thyromegaly, hyperthyroidism, dyslipidemia. She presented to the hospital because of concerns of increased worsening shortness of breath over last 2 to 3 weeks along with symptoms of orthopnea and paroxysmal nocturnal dyspnea. She also endorsed symptoms of increased swelling in the bilateral extremity. She denies any chest pain, chest pressure. She denies any lightheadedness or dizziness. She denies palpitations. She denies any fall or syncopal episodes at the home. Admission ECG shows atrial fibrillation with slow heart rate response with heart rate around 60 bpm. No pauses noticed on telemetry so far. 03/03 Patient is seen and examined. Echocardiogram has been done and report is pending. Patient states that she lost 7 pounds and is urinating quite a bit. She denies any lower extremity edema. Weight is down almost 3 kg. XAVI's do not appear to be accurate. Repeat blood work reveals hemoglobin 12.7. Sodium 140, potassium 3.5, BUN 17 and creatinine 0.98. 03/04 Patient is seen today in follow-up. Echocardiogram is pending. Blood pressure 138/74, heart rate is 79, pulse ox 93% on room air.Yesterday, patient was transition to oral Bumex, Toprol XL and losartan were added. PHYSICAL EXAMINATION Vital signs reviewed. Head: Normocephalic. Eyes: Sclerae nonicteric. Neck: Brisk carotid upstroke, no jugular venous distention. Swelling in the neck noticed from thyromegaly. Lungs: Mild crackles audible in bilateral lungs Heart: Irregularly irregular pulse, S1-S2, no S3, no murmur or rub. Abdomen: Soft nontender, positive bowel sounds. Extremities: No edema, intact distal pulses. Neuro: Alert, oritented, no focal deficits. Detailed neuro exam was not performed. ASSESSMENT Mild HFpEF exacerbation Atrial fibrillation with slow ventricle response History of TIA Graves' disease with thyromegaly and hypothyroidism Pertinent testing TSH 3.6, normal. NT-proBNP 4700, troponin negative, creatinine 0.9 PLAN Continue Bumex 1 mg daily Continue Eliquis 2.5 mg twice daily and Toprol XL 25 mg daily Continue losartan 12.5 mg daily Obtain updated echocardiogram report If echocardiogram is unremarkable, patient is cleared for discharge and may follow-up in the office with Dr. Batista in 1 to 2 weeks. Nurse practitioner note has been reviewed, I agree with documented findings and plan of care. Patient was seen and examined. Objective - Vital Signs Vital signs: Vital Signs Temp 98.6 F 03/04/24 08:00 Pulse 62 03/04/24 08:00 Resp 16 03/04/24 08:00 BP 124/61 03/04/24 08:00 Pulse Ox 93 L 03/04/24 08:00 FiO2 Intake & Output 03/03/24 03/04/24 03/04/24 18:59 06:59 18:59 Intake Total 358 118 Balance 358 118 Weight 59.3 kg 58.4 kg Intake: Oral 358 118 Other: Voiding Method Toilet Toilet Diaper Diaper - Labs CBC & Chem 7: 03/03/24 07:45 03/03/24 07:45
--- NOTE | 2024-03-04 17:26 | CA ---
Transthoracic Echo Report Name: Gloria Spivey Age: 88 Gender: F : 1935 Exam Date: 03/04/2024 10:37 Exam Location: [facility] Ht (in): 66 Wt (lb): 128 Ordering Physician: Agustin Ahumada MD Attending/Referring Phys: Meat Stringer Eboni Huber RDCS Procedure CPT: Indications: sob, le swelling Cardiac Hx: Technical Quality: Fair Contrast 1: Total Dose (mL): Contrast 2: Total Dose (mL): MEASUREMENTS (Male / Female) Normal Values 2D ECHO LV Diastolic Diameter PLAX 3.3 cm 4.2 - 5.9 / 3.9 - 5.3 cm LV Systolic Diameter PLAX 2.4 cm IVS Diastolic Thickness 1.3 cm 0.6 - 1.0 / 0.6 - 0.9 cm LVPW Diastolic Thickness 1.6 cm 0.6 - 1.0 / 0.6 - 0.9 cm LV Relative Wall Thickness 0.9 RV Internal Dim ED PLAX 1.9 cm LA Systolic Diameter LX 4.5 cm 3.0 - 4.0 / 2.7 - 3.8 cm LV Diastolic Volume MOD BP 33.0 cm??? 67 - 155 / 56 - 104 cm??? LV Systolic Volume MOD BP 12.4 cm??? 22 - 58 / 19 - 49 cm??? LV Ejection Fraction MOD BP 62.5 % >= 55 % LV Cardiac Index MOD BP 853.6 cm???/min???m??? LV Diastolic Volume MOD 4C 30.1 cm??? LV Systolic Volume MOD 4C 12.1 cm??? LV Ejection Fraction MOD 4C 59.8 % LV Cardiac Index MOD 4C 745.1 cm???/min???m??? LV Diastolic Length 4C 5.9 cm LV Systolic Length 4C 4.8 cm LV Diastolic Volume MOD 2C 35.5 cm??? LV Systolic Volume MOD 2C 13.2 cm??? LV Ejection Fraction MOD 2C 62.8 % LV Cardiac Index MOD 2C 923.7 cm???/min???m??? LV Diastolic Length 2C 5.8 cm LV Systolic Length 2C 4.6 cm LA Volume 65.4 cm??? 18 - 58 / 22 - 52 cm??? LA Volume Index 39.8 cm???/m??? 16 - 28 cm???/m??? M-MODE Aortic Root Diameter MM 2.6 cm LA Systolic Diameter MM 3.9 cm LA Ao Ratio MM 1.5 AV Cusp Separation MM 1.6 cm DOPPLER TR Peak Velocity 310.2 cm/s TR Peak Gradient 38.5 mmHg FINDINGS Left Ventricle Left ventricular ejection fraction is estimated at 55-60%. Mildly increased septal wall thickness. Moderately increased posterior wall thickness. No obvious regional wall motion abnormalities. Right Ventricle Normal right ventricular size and function. Mild pulmonary hypertension. Right Atrium Severe right atrial dilatation. Left Atrium Moderately increased left atrial diameter. Moderately increased left atrial volume. Mitral Valve Structurally normal mitral valve. Mild mitral regurgitation. No mitral stenosis. Aortic Valve Trileaflet aortic valve. No aortic valve stenosis or regurgitation. Tricuspid Valve Structurally normal tricuspid valve. Moderate tricuspid regurgitation. No tricuspid stenosis. Pulmonic Valve Structurally normal pulmonic valve. [id number] pulmonic regurgitation. No pulmonic stenosis. Pericardium Left pleural effusion. Aorta Normal size aortic root and proximal ascending aorta. CONCLUSIONS Normal LV systolic function Left atrial enlargement Right atrial enlargement Mild pulmonary hypertension Mild mitral and moderate tricuspid regurgitation Left pleural effusion Previewed by: Dr. North Bowling MD (Electronically Signed) Final Date: 04 March 2024 17:26
[2024-03-04 19:44] VITALS: RESP 18
[2024-03-05 08:12] VITALS: BP 135/74; PULSE 72; TEMP 98
--- NOTE | 2024-03-05 11:00 | P.DS ---
Providers Date of admission: 03/01/24 22:54 Expected date of discharge: 03/05/24 Attending physician: Twan Quiñonez MD Consults: 03/01/24 20:57 Consult Physician Routine Consulting Provider: Gregorio Batista Consult Reason/Comments: CHF Do you want consulting provider notified?: Yes, Notify in am Primary care physician: Bel Sterling MD Hospital Course: Discharge Diagnosis: Diastolic heart failure exacerbation Persistent atrial fibrillation with a controlled/slowed ventricular response History of CVA Mild Transaminitis, stable Hypomagnesemia, resolved. Hyperthyroidism with Graves' disease Large thyroid mass. Continue methimazole 2.5 mg daily. TSH was normal findings at 3.690. GERD. Continue Protonix 40 mg daily. Hospital course: Patient is a pleasant 88-year-old female with a past medical history of asthma, GERD, hyperthyroidism with Graves' disease, chronic A-fib (not on blood thinner), chronic diastolic congestive heart failure, history of CVA presents, hyperlipidemia, and IBS. Pt presented to the hospital on 03/01/24 with a chief complaint of shortness of breath and lower extremity edema. Patient reported the symptoms began approximately 3 weeks ago and progressively worsened accompanied by orthopnea. Arrival to our facility, patient underwent evaluation in the emergency department. Vital signs upon arrival show blood pressure 178/98, heart rate 76, respiratory rate 18, temp 97.4 F, and SpO2 of 98% on room air. EKG completed showing atrial fibrillation with controlled ventricular rate of 73 bpm. X-ray consistent with CHF showing cardiomegaly with pulmonary vascular congestion and bilateral pleural effusions. Labs completed and reviewed. CBC unremarkable. Coagulation profile showing elevated PT of 12.9 and INR of 1.2. BMP showing hyperchloremia with chloride of 109 and prerenal azotemia with BUN of 19. Blood glucose 128. Magnesium 1.8. Liver profile showing elevated AST of 61 and ALT of 88 otherwise normal findings. Troponin was negative at less than 0.012. proBNP was 4700. TSH was 3.690. Urinalysis negative for infection. Patient was admitted under our services with consultation to cardiology. She underwent successful IV diuresis. Medication changes were made including decreasing metoprolol dose to 25 mg daily and pt was started patient on atorvastatin 40 mg nightly, losartan 12.5 mg daily, Bumex 1 mg daily, and Eliquis 2.5 mg twice daily. Echocardiogram was completed showing a preserved EF of 55 to 60% with mild pulmonary hypertension and mild mitral and moderate tricuspid regurgitation. Patient was cleared from cardiology perspective for discharge and has been medically optimized and stable for discharge home at this time. Physical exam: Vital signs reviewed and stable. General: Nontoxic, no distress and appears stated age. Derm: Skin warm and dry, normal coloration for ethnicity. Head: Atraumatic, normocephalic and symmetric. Large-sized mass of anterior neck/thyroid extending to the left lateral neck (patient reports this is known mass from Graves' disease and stated she was not a surgical candidate) Eyes: EOM's intact, no lid lag, and anicteric sclera Mouth: no lip lesions, mucus membranes moist Cardiovascular: regular rate and rhythm with normal S1S2, no murmur, positive posterior tibial pulses bilaterally, and cap refill < 2 seconds. Lungs: Respirations even, regular, and unlabored on room air. Lungs with bibasilar crackles. No accessory muscle usage. Abdominal: soft, nontender to palpation, no guarding, no appreciable organomegaly Ext: ROM intact. No gross muscle atrophy, no edema, no contractures Neuro: Speech clear, face symmetrical and CN II-XII grossly intact with no noted focal neuro deficits Psych: Alert and oriented to person, place, time, and situation. Appropriate and pleasant affect. A total of 34 minutes of time were spent preparing this complex discharge summary. Pt was discharged on 03/05/2024 at 9:14 AM Patient was seen independently by Nurse Practitioner. This document was prepared using [employer] dictation software. Please allow for errors in fighter pilot while rare they do occur. Dk Mc NP rendered care for this patient independently, reviewed the findings and plan as documented in the note above. I did not physically speak with or examine the patient on this date. Patient Condition at Discharge: Stable Plan - Discharge Summary Discharge Rx Participant: No New Discharge Prescriptions: New Bumetanide [BUMEX] 1 mg PO DAILY 30 Days #30 tab Losartan [Cozaar] 12.5 mg PO DAILY 30 Days #15 tab Apixaban [Eliquis] 2.5 mg PO BID 30 Days #60 tab Atorvastatin [Lipitor] 40 mg PO HS 30 Days #30 tab Pantoprazole [Protonix] 40 mg PO AC-BRKFST 30 Days #30 tab Metoprolol Succinate (ER) [Toprol XL] 25 mg PO DAILY 30 Days #30 tab Continue Dorzolamide/Timolol/Pf [Dorzolamide 2%-Timolol 0.5%] 1 drop BOTH EYES BID Cholecalciferol [Vitamin D3 (25 Mcg = 1000 Iu)] 25 mcg PO HS methIMAzole [Tapazole] 2.5 mg PO DAILY polyethylene glycoL 3350 [Miralax] 17 gm PO DAILY Latanoprost/Pf [Latanoprost 0.005% Eye Drop] 1 drop BOTH EYES HS Docusate [Colace] 100 mg PO BID PRN PRN Reason: Constipation Discontinued Metoprolol Tartrate [Lopressor] 25 mg PO BID Naproxen Sodium [Aleve] 220 mg PO BID PRN PRN Reason: Pain Or Fever > 100.5 Discharge Medication List Cholecalciferol [Vitamin D3 (25 Mcg = 1000 Iu)] 25 mcg PO HS 09/18/20 [History] Dorzolamide/Timolol/Pf [Dorzolamide 2%-Timolol 0.5%] 1 drop BOTH EYES BID 09/18/20 [History] Latanoprost/Pf [Latanoprost 0.005% Eye Drop] 1 drop BOTH EYES HS 09/18/20 [History] methIMAzole [Tapazole] 2.5 mg PO DAILY 09/18/20 [History] Docusate [Colace] 100 mg PO BID PRN 03/01/24 [History] polyethylene glycoL 3350 [Miralax] 17 gm PO DAILY 03/01/24 [History] Apixaban [Eliquis] 2.5 mg PO BID 30 Days #60 tab 03/05/24 [Rx] Atorvastatin [Lipitor] 40 mg PO HS 30 Days #30 tab 03/05/24 [Rx] Bumetanide [BUMEX] 1 mg PO DAILY 30 Days #30 tab 03/05/24 [Rx] Losartan [Cozaar] 12.5 mg PO DAILY 30 Days #15 tab 03/05/24 [Rx] Metoprolol Succinate (ER) [Toprol XL] 25 mg PO DAILY 30 Days #30 tab 03/05/24 [Rx] Pantoprazole [Protonix] 40 mg PO AC-BRKFST 30 Days #30 tab 03/05/24 [Rx] Follow up Appointment(s)/Referral(s): Gregorio Batista MD [Medical Doctor] - 1 Week (please call office to make appointment) Bel Sterling MD [Primary Care Provider] - 1-2 days (please call office to make appointment) [facility] [NON-STAFF] - 1 Week Patient Instructions/Handouts: Heart Failure (DC) Activity/Diet/Wound Care/Special Instructions: Activity: As tolerated. Take breaks as needed. Diet: Heart healthy and carb consistent diet. Avoid salts, or foods with hidden salts such as canned or boxed foods and frozen dinners. Extra salt makes your heart work harder and traps the fluid in your body for longer. Special Instructions: Weigh yourself every morning after you urinate. If you gain 3 pounds overnight or more than 5 pounds in one week, call your primary physician and labeler for guidance on your medications or they may want to see you in their office. Keep a daily log of your weights and be sure to bring with you at follow up visits with your PCP and labeler. Take all of your medications as directed, especially your water pills. NEVER skip a dose. And remember to keep all of your doctor's appointments and follow- up as needed. Elevate your legs when you are not up moving around to help with circulation and prevent swelling. Compression stockings are also a great way to improve lower extremity circulation and prevent/improve lower extremity edema. Call your primary care provider and labeler if you notice any extra swelling in your legs, ankles, feet or abdomen, if you have a new dry cough, if your shortness of breath worsens with activity or at rest, or if you feel more fatigued. Thank you for allowing us to participate in your care, it was truly a pleasure having you for our patient!!! . Discharge Disposition: HOME WITH HOME HEALTH SERVICES
== END 2024-03-05 11:23 | disposition home health service (06) | DRG 292 ==
LOC: EC 15:28 → 3SCARD 22:54
PROVIDERS: ADMIT Internal Medicine; ATTEND Internal Medicine
DX: I50.33 Acute on chronic diastolic (congestive) heart failure (principal); I48.19 Other persistent atrial fibrillation; K90.41 Non-celiac gluten sensitivity; E03.9 Hypothyroidism, unspecified; E05.00 Thyrotoxicosis with diffuse goiter without thyrotoxic crisis or storm; Z90.49 Acquired absence of other specified parts of digestive tract; Z90.710 Acquired absence of both cervix and uterus; Z79.890 Hormone replacement therapy; Z96.1 Presence of intraocular lens; Z98.42 Cataract extraction status, left eye; Z98.41 Cataract extraction status, right eye; Z91.81 History of falling; Z87.01 Personal history of pneumonia (recurrent); Z86.73 Personal history of transient ischemic attack (TIA), and cerebral infarction without residual deficits; K21.9 Gastro-esophageal reflux disease without esophagitis; J45.909 Unspecified asthma, uncomplicated; E78.5 Hyperlipidemia, unspecified; E83.42 Hypomagnesemia; E87.8 Other disorders of electrolyte and fluid balance, not elsewhere classified; F32.A Depression, unspecified; F41.9 Anxiety disorder, unspecified; I08.1 Rheumatic disorders of both mitral and tricuspid valves; I27.20 Pulmonary hypertension, unspecified; K58.9 Irritable bowel syndrome, unspecified; M81.0 Age-related osteoporosis without current pathological fracture; R74.01 Elevation of levels of liver transaminase levels; R79.1 Abnormal coagulation profile; Z79.01 Long term (current) use of anticoagulants; Z79.899 Other long term (current) drug therapy; Z87.891 Personal history of nicotine dependence; Z88.0 Allergy status to penicillin; Z88.5 Allergy status to narcotic agent; Z88.8 Allergy status to other drugs, medicaments and biological substances
CPT/HCPCS: 36415; 71046; 80053; 81001; 83735; 83880; 84443; 84484; 85025; 85027; 85610; 85730; 93005; 93306; 96365; 96366; 96375; 96376; 99285